=== PATIENT | female | born 1990 | race Caucasian/White ===

== ENCOUNTER 2020-11-20 11:54 | Emergency (ER) | payer SELFPAY ==
[~2020-11-20 11:54] MED LIST: AMOX/K CLAV500 MG PO; BACTRIM DS1 TAB PO; DOXYCYCL HYC100 MG PO; FERROUS SULF325 M1 PO; LABETALOL100 MG PO; LORTAB 7.57.5 MG PO; NIFEDIPINE ER30 M1 PO; OMNICEF300 MG PO; PRENATA3 OR; PROCARDIA XL30 MG PO
== END 2020-11-20 12:16 | disposition left against medical advice (07) | DRG 951 ==
LOC: ED 11:54 → LWOBS 12:10
DX: Z91.19 Patient's noncompliance with other medical treatment and regimen (principal)